=== PATIENT | male | born 1980 | race Caucasian/White ===

== ENCOUNTER 2017-03-09 14:00 | Inpatient (IN) | payer OTHER ==
[~2017-03-09] VITALS: Ht 182.9 cm; Wt 79.4 kg
--- NOTE | ~2017-03-09 | PA ---
Unit #: [id number] #: [id number] Patient: VAN AGUIRRE [id number] [place] [address] [id number] MR#: [id number] NAME: VAN AGUIRRE. ROOM: P209 Age: 37 Sex: M Admission Date: 03/09/2017 : 1980 Date of Assessment: 03/10/2017 Attending Physician: Rojas Brewster M.D. Admitting Physician: Rojas Brewster M.D. Primary Care Physician: Primary Care Physician No PSYCHIATRIC ASSESSMENT IDENTIFYING INFORMATION The patient is a 37-year-old single white male admitted to the [address] [place] [address] Unit with a history of increasing Methamphetamine and heroin use. CHIEF COMPLAINT "Getting off drugs." INFORMANT(S) Patient, reliability is good. HISTORY OF PRESENT ILLNESS The patient is a 37-year-old white male admitted in transfer from [facility] where he had presented following suicidal ideation. [facility] had taken the patient to that facility, the patient reporting that he was having thoughts of suicide by means of overdose. The patient reports a history of substance use dating to 2007. He was last discharged from this facility in 2014. The patient is currently homeless and suffers from hepatitis C. He is on no medications at this time. He does admit to intravenous substance use. PAST PSYCHIATRIC HISTORY As above. PAST MEDICAL HISTORY Significant for a history of hepatitis C. MEDICATIONS None. ALLERGIES None. FAMILY HISTORY Noncontributory. SOCIAL HISTORY As noted previously, the patient is homeless. He reports intravenous use of methamphetamine and heroin on a daily basis. He is a smoker. MENTAL STATUS EXAMINATION Examination at this time reveals the patient to be a well-developed well-nourished heavily tattooed male appearing stated age. He is in no significant physical distress related to opioid withdrawal during Unit #: [id number] #: [id number] Patient: VAN AGUIRRE interview. He is awake, alert, and oriented in all spheres. His mood is dysphoric, his affect blunted. Speech is generally well-coherent. There are no gross deficits in memory or cognition noted. Intelligence is judged to be in the average range based on fund of knowledge. The patient is cooperative throughout the interview. He is currently endorsing positive suicidal ideation with plan to overdose. He denies homicidal ideation. He denies any psychotic symptoms. His judgment and insight appear to be intact. ASSETS AND LIABILITIES The patient's assets: Motivation for change. Liabilities: Lack of resources. DIAGNOSTIC IMPRESSION 1. Opioid use disorder. 2. Methamphetamine use disorder. 3. Antisocial personality traits versus disorder. 4. Hepatitis C. TREATMENT PLAN The patient remains hospitalization for safety and stabilization. A routine detoxification protocol for opioids has been initiated, and suicide precautions remain in place. The patient is currently hospitalized for a 72-hour hold but will be afforded an opportunity to sign into the hospital, and I will ask the social worker aide to see him regarding possible residential chemical dependence treatment following completion of detox. ESTIMATED LENGTH OF STAY 3 to 5 days. Dictated by... Rojas Brewster M.D. Laura TD: 03/10/2017 13:53 JOB #: [id number] PSYCHIATRIC ASSESSMENT Page 1 of 1 X Rojas Brewster MD X PSYCHIATRIC ASSESSMENT
--- NOTE | ~2017-03-09 | PN ---
Unit #: [id number] #: [id number] Patient: VAN AGUIRRE [id number] [facility] [address] [place] [address] [id number] MR#: [id number] NAME: VAN AGUIRRE ROOM: P209 Age: 37 Sex: M Admission Date: 03/09/2017 : 1980 Attending Physician: Rojas Brewster M.D. Admitting Physician: Rojas Brewster M.D. Primary Care Physician: Primary Care Physician Carla CONNELL PROGRESS NOTES DATE 03/11/2017 DISCUSSION The patient appears to be in significant physical distress related to opioid withdrawal. He does state that he has spoken with his oncology social worker regarding possible initiation of residential chemical dependence treatment. I have advised the patient to avail himself of prescribed p.r.n.s. Dictated by... Rojas Brewster M.D. CB/ledy TD: 03/11/2017 14:21 JOB #: [id number] [facility] PROGRESS NOTES Page 1 of 1 X Rojas Brewster MD PROGRESS NOTE
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
--- NOTE | ~2017-03-09 | DS ---
Unit #: [id number] #: [id number] Patient: VAN AGUIRRE [id number] [place] [address] [id number] MR#: [id number] NAME: VAN AGUIRRE. ROOM: P209 Age: 37 Sex: M Admission Date: 03/09/2017 : 1980 Discharge Date: 03/13/2017 Attending Physician: Rojas Brewster M.D. Primary Care Physician: Primary Care Physician No DISCHARGE SUMMARY REASON FOR ADMISSION The patient is a 37-year-old white male admitted to the [address] [place] [address] for detox from heroin and methamphetamine. HOSPITAL COURSE The patient was admitted to the [address] [place] [address], placed on routine detoxification protocol. His stay in the hospital was a brief and uneventful one. His participation was limited by his severe physical symptoms. By 03/13, the patient had recovered sufficiently to request discharge for follow up at "[facility]." Discharge was ordered. DISCHARGE DIAGNOSES 1. Methamphetamine use disorder. 2. Opioid use disorder. 3. Hepatitis C. FOLLOWUP CARE Followup to take place through the auspices of community mental health resources. DISCHARGE MEDICATIONS The patient is discharged on no psychotropic or other medications. PROGNOSIS Considered fair. Dictated by... Rojas Brewster M.D. CB/gato TD: 03/13/2017 18:02 JOB #: [id number] Unit #: [id number] #: [id number] Patient: VAN AGUIRRE DISCHARGE SUMMARY Page 1 of 1 X Rojas Brewster MD X DISCHARGE SUMMARY
--- NOTE | ~2017-03-09 | PN ---
Unit #: [id number] #: [id number] Patient: VAN AGUIRRE [id number] [facility] [address] [place] [address] [id number] MR#: [id number] NAME: VAN AGUIRRE ROOM: P209 Age: 37 Sex: M Admission Date: 03/09/2017 : 1980 Attending Physician: Rojas Brewster M.D. Admitting Physician: Rojas Brewster M.D. Primary Care Physician: Primary Care Physician Carla CONNELL PROGRESS NOTES DATE 03/12/2017 DISCUSSION The patient is expressing excitement today in that he has been accepted to the [facility] as of tomorrow. Discharge will take place at that time. Dictated by... Rojas Brewster M.D. CB/ledy TD: 03/12/2017 15:05 JOB #: [id number] [facility] PROGRESS NOTES Page 1 of 1 X Rojas Brewster MD PROGRESS NOTE
[2017-03-10 10:27] LABS: ALBUMIN SERUM 3.2 g/dL (3.5-5.0); BILIRUBIN,TOTAL 0.2 mg/dL (0.2-2.0); BUN/CREATININE RATIO 11.25; CREATININE SERUM 0.8 mg/dL (0.6-1.4); GLOM FILT RATE Estimated 113.4 mL/min (>60); POTASSIUM 4.4 mmol/L (3.5-5.1); PROTEIN TOTAL SERUM 6.1 g/dL (6.0-8.3)
== END 2017-03-13 12:40 | disposition home or self-care (01) | DRG 897 ==
LOC: P2S 16:35
PROVIDERS: Specialist
PROC: HZ2ZZZZ Detoxification Services for Substance Abuse Treatment (ICD-10-PCS; principal; 2017-03-09)
DX: F11.10 Opioid abuse, uncomplicated (principal); R45.851 Suicidal ideations; F15.10 Other stimulant abuse, uncomplicated; B19.20 Unspecified viral hepatitis C without hepatic coma; F60.2 Antisocial personality disorder; F17.210 Nicotine dependence, cigarettes, uncomplicated; Z59.0 Homelessness
CPT/HCPCS: 80053; 87806